=== PATIENT | male | born 1995 | race Caucasian/White ===

== ENCOUNTER → 2017-07-05 | Outpatient (CLI) | payer OTHER | LOC: M.RAD 13:38 | DX: S22.41XA Multiple fractures of ribs, right side, initial encounter for closed fracture (principal); J98.11 Atelectasis; W19.XXXA Unspecified fall, initial encounter; Y93.89 Activity, other specified; Y92.89 Other specified places as the place of occurrence of the external cause; Y99.8 Other external cause status ==

== ENCOUNTER → 2018-07-11 | Day surgery (SDC) | payer OTHER ==
[~2018-07-11] MED LIST: NEURONTIN 300300 M1 PO; NORCO 5-325 TA1 EACH PO
--- NOTE | ~2018-07-11 | OP ---
[address] [address] OPERATIVE REPORT Name: KAPILCHARLOTTE Room: [facility]#: [id number] Admission: 07/11/18 Attend Phys: Penny Lawson MD Discharge: Date of : 89 Report #: [id number] THIS REPORT FOR: //name// CC: Braxton Lawson DATE OF SERVICE: 07/11/2018 PREOPERATIVE DIAGNOSIS: Symptomatic biliary colic. POSTOPERATIVE DIAGNOSIS: Chronic cholecystitis. OPERATIVE PROCEDURE: Laparoscopic cholecystectomy. ANESTHESIA: General endotracheal with 0.5% Marcaine infiltrated into the wound sites. OPERATIVE FINDINGS: Gallbladder with small stones and adhesions to the duodenum from the Fernanda pouch. OPERATIVE PROCEDURE: The patient was placed under general endotracheal anesthesia. The abdomen was shaved, prepped and draped in a sterile fashion. IV antibiotic was administered. A timeout was taken. I began by infiltrating the infraumbilical crease with 0.5% Marcaine and made a transverse incision there with a #15 scalpel blade. Its edges lifted up with 2 Adson forceps with the aid of cautery, dissected down to the anterior abdominal wall. The anterior abdominal wall was grabbed with 2 Kochers and tented upward and cleared with cautery on each side and then a transverse incision was placed there with a #15 scalpel blade. Blunt dissection with a mosquito to the peritoneal cavity was accomplished and a 0 PDS was looped through this incision site. A size 12 applied medical Xu trocar was placed into the peritoneal cavity. Its balloon was deployed and the trocar was secured at the skin. Insufflation with carbon dioxide was completed to 4 liters. A 10 mm 30-degree scope was inserted and the right upper quadrant was inspected. Direct visualization in the subcostal margin on the right side, infiltration at the epigastric, midclavicular, and anterior axillary line followed by 3 small stab incisions with a #15 scalpel blade and placement of 3 bladeless 5 mm trocars into the upper abdomen was accomplished. The patient then was placed in reverse Trendelenburg and left lateral decubitus position. The gallbladder was grabbed at its fundus and Fernanda pouch and tented towards the diaphragm. A slow meticulous dissection with a [place] dissector carefully dissected out the cystic duct and cystic artery. They were controlled with 3 Hemoclips and then divided with laparoscopic scissors. Handheld cautery then was used to dissect the gallbladder off of the undersurface of the liver. Once that was accomplished, the camera was switched from a 10 mm to a 5 mm 30-degree scope and placed in the epigastric port and through the umbilical port, [place] [address] OPERATIVE REPORT Name: CHARLOTTE DICK Room: [facility] M.R.#: [id number] Admission: 07/11/18 Attend Phys: Penny Lawson MD Discharge: Date of : 89 Report #: [id number] fed into the upper abdomen, opened and the gallbladder placed in that pouch, string pulled from that pouch and closed the pouch and then the pouch and string was pulled up into the umbilical port. The port was then removed with the gallbladder in the pouch without incident. The Xu was re-placed. The right upper quadrant was inspected. There was no active bile or blood seen at the subhepatic space. I then deflated pneumoperitoneum, removed all trocars. We placed the patient back in neutral position. The 0 PDS was tied at the umbilical stalk and infiltrated with 0.5% Marcaine. All 4 incisions were closed with buried 4-0 PDS sutures and sealed with Dermabond. Estimated blood loss 2 mL. Sponge and instrument counts were correct. The patient was extubated, returned to recovery in a stable condition. By: [id number] Lawson MD /nt
--- NOTE | ~2018-07-11 | H ---
[address] [address] HISTORY AND PHYSICAL Name: CHARLOTTE DICK Room: [facility]..#: [id number] Admission: Attend Phys: Penny Lawson MD Discharge: Date of : 89 Report #: [id number] THIS REPORT FOR: //name// CC: Braxton Lawson DATE OF SERVICE: 07/11/2018 The patient to be treated on 07/11/2018. ADMITTING DIAGNOSIS: Symptomatic biliary colic. HISTORY OF PRESENT ILLNESS: The patient is a 23-year-old male who was referred to me from Dr. Anthony where he presented to his office with complaints of right-sided abdominal pain. He had an ultrasound, which revealed cholelithiasis, but no gallbladder wall thickening, so he was referred for surgical management. PAST MEDICAL HISTORY: Chronic back pain. PAST SURGICAL HISTORY: Repair of an Achilles tendon performed in 2011. CURRENT MEDICATIONS: Include gabapentin. SOCIAL HISTORY: He has no tobacco history. FAMILY HISTORY: Noted for high blood pressure. REVIEW OF SYSTEMS: Otherwise, unremarkable. PHYSICAL EXAMINATION: GENERAL: He is a well-developed, thin male sitting up in no acute distress. HEAD, EARS, EYES, NOSE AND THROAT: Unremarkable. NECK: Supple. LUNGS: Clear. CARDIAC: Regular rate and rhythm without murmur. ABDOMEN: Soft with no organomegaly or no rebound or tenderness. EXTREMITIES: Noted no varicosities or pitting edema. IMPRESSION AND PLAN: Calculus of the gallbladder without cholecystitis. I have outlined laparoscopic cholecystectomy, its risks and benefits and answered his questions. He understands and wishes to proceed. By: [id number] Lawson MD /nt
--- NOTE | 2018-07-13 13:07 | PATH ---
[address] [address] PATHOLOGY RPT PROCEDURE Name: CHARLOTTE CURTIS Room: [facility]..#: [id number] Admission: 07/11/18 Date of : 89 Discharge: Report #: [id number] Path Case #: [id number] [facility] Accession Number: [id number] . 01 Material submitted: . gallbladder - GALLBLADDER AND CONTENTS . 01 Clinical history: . Cholelithiasis . 02 Diagnosis: Gallbladder with contents: - Chronic cholecystitis and cholelithiasis. (NUHA:jose f; 07/13/2018) MBR/07/13/2018 . 02 Electronically signed: . Davon Garcia MD, Pathologist NPI- [id number] . 01 Gross description: . The specimen is received in formalin, labeled "Charlotte Curtis, gallbladder with contents". Received is an intact gallbladder measuring 7.7 x 3.2 x 3.2 cm in greatest dimensions displaying a blue-oviedo serosal surface. Opening the gallbladder reveals a velvety, bile-stained mucosa with a gallbladder wall thickness of 0.1 cm. A single black, granular calculus is present and no masses or lesions are noted grossly. Electrical Laboratory Technician sections, to include the proximal margin, are submitted in cassette A1. (CAA; 07/12/2018) QAC/QAC . 02 Pathologist provided ICD-10: K80.10 . 02 CPT . 984940 Specimen Comment: A courtesy copy of this report has been sent to Specimen Comment: [phone], . Specimen Comment: Report sent to / DR GARDUNO Performed at: 01 [facility] [address] [place] [address] [address], [place], [place] [id number] MD Jose Cruz Hodge MD Phone: [phone] Performed at: [address] [address] [address] [place], [place] [id number] MD Davon Garcia MD Phone: [phone]
== END | disposition home or self-care (01) ==
LOC: M.SUR 10:21
DX: K80.10 Calculus of gallbladder with chronic cholecystitis without obstruction (principal); M54.5 Low back pain; G89.29 Other chronic pain; Z98.890 Other specified postprocedural states; Z82.49 Family history of ischemic heart disease and other diseases of the circulatory system; Z79.899 Other long term (current) drug therapy

== ENCOUNTER 2019-03-23 10:58 | Emergency (ER) | payer OTHER ==
[~2019-03-23] VITALS: Ht 182.9 cm; Wt 59.0 kg
[2019-03-23 11:23] LABS: INFLUENZA A ANTIGEN Negative (Negative)
[2019-03-23] MEDS ORDERED: IBU800 MG PO (12:44)
[2019-03-23] MEDS ORDERED: TESSALON PERLE100 M1 PO ×2 (12:44→12:57)
[2019-03-23] MEDS ORDERED: AMOXICILLIN 50500 MG PO (12:44)
[2019-03-23] MEDS ORDERED: FLONASE 0.05%50 MCG NASAL ×2 (12:44→12:57)
[2019-03-23 13:15] VITALS: BP 115/74
== END 2019-03-23 13:16 | disposition home or self-care (01) ==
LOC: M.ERS 10:58
PROVIDERS: Nurse Practitioner Psychiatric/Mental Health
DX: J10.1 Influenza due to other identified influenza virus with other respiratory manifestations (principal); L53.9 Erythematous condition, unspecified; R59.1 Generalized enlarged lymph nodes; R21 Rash and other nonspecific skin eruption